=== PATIENT | female | born 1990 | race Caucasian/White ===

== ENCOUNTER 2018-04-15 22:20 | Emergency (ER) | payer OTHER ==
[~2018-04-15] VITALS: Ht 152.4 cm; Wt 56.0 kg
[2018-04-15] MEDS ORDERED: KETOROLAC 30MG/ML VIAL IM ONE (23:45)
[2018-04-15] MEDS ORDERED: CYCLOBENZAPRINE 10MG TABLET PO ONE (23:45)
[2018-04-16 01:22] VITALS: BP 115/62
== END 2018-04-16 01:35 | disposition home or self-care (01) ==
LOC: ER 22:20
DX: S16.1XXA Strain of muscle, fascia and tendon at neck level, initial encounter (principal); R07.89 Other chest pain; F17.200 Nicotine dependence, unspecified, uncomplicated; F12.10 Cannabis abuse, uncomplicated; V49.49XA Driver injured in collision with other motor vehicles in traffic accident, initial encounter; Y93.89 Activity, other specified; Y92.89 Other specified places as the place of occurrence of the external cause; Y99.8 Other external cause status; Z98.890 Other specified postprocedural states
CPT/HCPCS: 71045; 72125; 81025; 93005; 96372; 99284; J1885